=== PATIENT | female | born 1980 | race Caucasian/White ===

== ENCOUNTER 2025-03-02 12:33 | Emergency (ER) | payer MEDICAID ==
[~2025-03-02] VITALS: Ht 170.2 cm; Wt 124.0 kg
[~2025-03-02 12:33] MED LIST: BUSP15 PO
[2025-03-02 12:41] VITALS: TEMP 97.9
[2025-03-02 14:27] VITALS: BP 136/89; PULSE 85; RESP 18; O2SAT 99
[2025-03-02] MEDS: SODIUM CHLORIDE 0.9% 1,000 ML IV ONE ×2 (14:39→15:15)
[2025-03-02] MEDS: ACETAMINOPHEN 500 MG TABLET PO ONE (15:15)
[2025-03-02] MEDS: ONDANSETRON HCL 4 MG/2 ML VIAL IVP ONE (15:16)
[2025-03-02] MEDS: KETOROLAC TROMETHAMINE 30 MG/ML VIAL IVP ONE (15:16)
[2025-03-02] MEDS: DIPHENOXYLATE/ATROP 2.5-0.025 MG TABLET PO ONE (15:16)
[2025-03-02 15:17] LABS: PLATELET COUNT (AUTO) 273 K/uL (150-450); RED BLOOD CELL COUNT(AUTO) 4.40 MIL/uL (4.00-5.20); RED CELL DISTRIBUTION WIDTH 14.3 % (11.5-14.5); WHITE BLOOD COUNT (AUTO) 8.6 K/uL (4.5-11.0)
[2025-03-02 15:21] LABS: CALCIUM, TOTAL 8.0 mg/dL (8.8-10.5); CREATININE 0.65 mg/dL (0.60-1.30); GLOMERULAR FILTR. RATE CALC > 60 mL/min (>60); GLUCOSE,RANDOM 94 mg/dL (70-110); SODIUM SERUM 139 mmol/L (136-145); UREA NITROGEN, BLOOD 11 mg/dL (7-18)
[2025-03-02] MEDS ORDERED: ACET-66 PO (16:11)
[2025-03-02] MEDS ORDERED: ONDA-104 PO (16:11)
== END 2025-03-02 16:44 | disposition home or self-care (01) ==
LOC: EMS 12:52
DX: K52.9 Noninfective gastroenteritis and colitis, unspecified (principal); E86.0 Dehydration; F41.9 Anxiety disorder, unspecified; Z98.890 Other specified postprocedural states; Z79.899 Other long term (current) drug therapy
CPT/HCPCS: 99284; 96374; 96361; 96375; 80048; 83690; 84703; 85025; 36415; J1885; J2405; J7030